=== PATIENT | female | born 2000 | race Caucasian/White ===

== ENCOUNTER 2019-01-08 05:01 | Observation (INO) ==
--- NOTE | 2018-12-31 17:16 | PAT Medication Instructions ---
Medication Instructions Date of Service January 01, 2019 Home Medications albuterol sulfate 90 mcg/actuation breath activated powder inhaler 1 puffs INH Q4H NEEDED testosterone enanthate 50 mg SUBCUT WK ASK your surgeon for instructions testosterone enanthate 50 mg SUBCUT WK Take morning of surgery With a small sip of water, OTHERWISE NOTHING TO EAT OR DRINK AFTER MIDNIGHT: albuterol sulfate 90 mcg/actuation breath activated powder inhaler 1 puffs INH Q4H NEEDED (if needed; bring to hospital) Take evening before surgery albuterol sulfate 90 mcg/actuation breath activated powder inhaler 1 puffs INH Q4H NEEDED (if needed) Other Notes If you have any questions please call us at [phone] or [phone] or [phone] or [phone]
--- NOTE | 2019-01-01 11:03 | Anesthesiology Consultation ---
Date of Service January 01, 2019 Assessment & Plan (1) Encounter for pre-operative examination: - No previous anesthesia records available Chart Review Chart Review: Acceptable Risk for Surgery and Patient seen in Pre Admission Manju ting Consults Requested none Teaching & Discussion Pre-Anesthesia Teaching/Discussion Notes: Instructed NPO after midnight before surgery, except medications with 15 cc of water. Medication instructions provided according to the PAT guidelines. History Surgery Operation Date: 01/08/19 07:30 Proposed Procedures p Non-Cancerous Bilateral Mastectomy with Free Nipple Grafting - Shannon Echols MD Height/Weight Height: 5 ft 7 in Weight: 75.4 kg Allergies Allergy/AdvReac Type Severity Reaction Status Date / Time lamotrigine [From Lamictal] Allergy Unknown HANDS SWELL Verified 12/25/18 10:41 Medications Home Medications Medication Instructions Recorded Confirmed Last Taken albuterol sulfate 90 mcg/actuation 1 puffs INH Q4H PRN 12/19/18 12/25/18 Unknown breath activated powder inhaler testosterone enanthate 50 mg SUBCUT WK 12/25/18 12/25/18 Unknown Past Medical History Medical History Asthma Exercise / Class Metabolic Activity II 4-5 Yardwork/Stairs/Walk up hill (Able to climb FOS. Denies CP or SOB. ) Past Surgical History Surgical History Hx of wisdom tooth extraction Past Anesthesia History No Hx of Anesthesia Complications and No Family Hx of Anesthesia Complications History of PONV No Hx of PONV and No Hx of Motion Sickness Social History Smoking Status: Never smoker Do You Dip or Chew Tobacco: No Hx Alcohol Use: No Hx Substance Use: No Review of Systems Patient denies chest pain, shortness of breath, dyspnea on exertion, joint pain, reflux, cough, wheezing, palpitations. Physical Exam Vital Signs BP: 107/61 P: 60 R: 18 T: 98.3 SPO2: 98% on RA ENMT Thyromental Distance: > or= 3.5 Finger Breadths (4) Mallampati Class: I Neck normal visual inspection; neck extension not limited Respiratory normal respiratory effort Auscultation: lungs clear to auscultation bilaterally Cardiovascular Rate/Rhythm: regular rate and regular rhythm Heart Sounds: no murmur Neurologic moves all extremities Psychiatric Orientation: alert and oriented x 3 Testing Laboratory Results 01/01/19 07:37 01/01/19 07:37 PT 10.7 Seconds (9.0-12.0) 01/01/19 07:37 INR 1.0 (0.9-1.1) 01/01/19 07:37 APTT 27.1 Seconds (21.0-31.0) 01/01/19 07:37
[2019-01-01 14:19] LABS: Est GFR (African American) 92.3; Est GFR (Non-African American) 79.7; Potassium 3.6 mmol/L (3.5-5.1)
[2019-01-01 14:27] LABS: Basophils # (auto) 0.03 K/uL (0-0.2); Basophils % (auto) 0.4 %; Eosinophils # (auto) 0.06 K/uL (0-0.5); Eosinophils % (auto) 0.9 %; Hematocrit (blood only) 43.9 % (37-47); Hemoglobin 14.2 g/dL (12.0-16.0); Immature Granulocytes # (auto) 0.01 K/uL (0.00-0.02); Immature Granulocytes % (auto) 0.1 %; Lymphocytes # (auto) 2.01 K/uL (1.2-3.4); Lymphocytes % (auto) 29.5 %; Mean Corpuscular Hemoglobin 29.8 pg (25-34); Mean Corpuscular Hgb Conc 32.3 g/dL (32-36); Mean Corpuscular Volume 92.2 fL (80-100); Mean Platelet Volume 11.6 fL (7.4-10.4); Monocytes # (auto) 0.78 K/uL (0.11-0.59); Monocytes % (auto) 11.4 %; Neutrophils # (auto) 3.93 K/uL (1.4-6.5); Neutrophils % (auto) 57.7 %; Platelet Count 211 K/uL (130-400); RDW Coefficient of Variation 13.2 % (11.5-14.5); RDW Standard Deviation 44.5 fL (36.4-46.3); Red Blood Count 4.76 M/uL (4.2-5.4); White Blood Count 6.82 K/uL (4.8-10.8)
[2019-01-01 14:36] LABS: Partial Thromboplastin Time 27.1 Seconds (21.0-31.0); Prothrombin Time 10.7 Seconds (9.0-12.0)
[2019-01-08] MEDS ORDERED: LR 15ML/HR IV SCH (06:00)
[2019-01-08] MEDS ORDERED: CEFAZOLIN 2000MG 2,000 MG/15 ML SYR IV SCH (06:00)
[2019-01-08] MEDS ORDERED: EPINEPHrine INJ 1 MG/ML AMP ONE (07:01)
[2019-01-08] MEDS ORDERED: MIDAZOLAM HCL 1 MG/ML 2ML VIAL ONE (07:02)
[2019-01-08] MEDS ORDERED: LIDOCAINE HCL 1% 20 ML VIAL ONE (07:02)
[2019-01-08] MEDS ORDERED: LIDOCAINE/EPINEPHRINE 1% 20 ML VIAL ONE (07:02)
[2019-01-08] MEDS ORDERED: BUPIVACAINE 0.25% 30 ML VIAL ONE (07:02)
[2019-01-08] MEDS ORDERED: fentaNYL citrate 100 MCG/2 ML VIAL ONE ×2 (07:02→07:46)
--- NOTE | 2019-01-08 07:03 | History & Physical Bridge Note ---
Date of Service January 08, 2019 History & Physical Bridge Note I have examined the patient, reviewed the History & Physical and in the interval since the performance of the History & Physical I have noted the following changes of clinical significance: no changes noted
[2019-01-08] MEDS ORDERED: CISATRACURIUM BESYLATE IV SOLN 2 MG/ML 10 ML VIAL IV ONE (07:05)
[2019-01-08] MEDS ORDERED: ACETAMINOPHEN 1000 MG/100 ML IV IV ONE (07:51)
[2019-01-08] MEDS ORDERED: HYDROmorphone INJ 1 MG/ML SYRINGE IV PRN (07:57)
[2019-01-08] MEDS ORDERED: ATROPINE SULFATE 0.1 MG/ML 10ML SYR IV PRN (07:57)
[2019-01-08] MEDS ORDERED: FLUMAZENIL 0.1 MG/1 ML 10 ML VIAL IV PRN (07:57)
[2019-01-08] MEDS ORDERED: LABETALOL HCL IV 5 MG/ML 20ML IV PRN (07:57)
[2019-01-08] MEDS ORDERED: ONDANSETRON INJ 2 MG/ML 2 ML VIAL IV PRN ×2 (07:57→11:19)
[2019-01-08] MEDS ORDERED: NALOXONE HCL 0.4 MG/1 ML VIAL/CARP IV PRN (07:57)
[2019-01-08] MEDS ORDERED: PROMETHAZINE HCL 12.5 MG in SODIUM CHLORIDE 0.9% 50 ML IV PRN ×2 (07:57→11:11)
[2019-01-08] MEDS ORDERED: ePHEDrine sulfate 50 MG/ML AMP IV PRN (07:57)
[2019-01-08] MEDS ORDERED: ONDANSETRON INJ 2 MG/ML 2 ML VIAL ONE (08:22)
[2019-01-08] MEDS ORDERED: NEOSTIGMINE METHYLSULFATE 5 MG/5 ML SYR ONE (08:22)
[2019-01-08] MEDS ORDERED: LIDOCAINE HCL 2% 2 ML VIAL/AMP(20MG/ML) INFIL ONE (08:22)
[2019-01-08] MEDS ORDERED: DEXAMETHASONE SOD INJ 4 MG/ML VIAL ONE (08:22)
[2019-01-08] MEDS ORDERED: LARYING-O-JET KIT (LTA) ONE (08:22)
[2019-01-08] MEDS ORDERED: PROPOFOL IV EMULSION 10 MG/ML 20 ML VIAL IV ONE (08:22)
[2019-01-08] MEDS ORDERED: GLYCOPYRROLATE 0.2 MG/ML VIAL ONE (08:22)
--- NOTE | 2019-01-08 10:59 | Post Operative Brief Note ---
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
[2019-01-08] MEDS ORDERED: OXYCODONE/ACETAMINOPHEN 5mg/325mg TAB PO PRN (11:11)
[2019-01-08] MEDS ORDERED: MoRPHine SULFATE 2 MG/ML CARP IV PRN (11:11)
[2019-01-08] MEDS ORDERED: ACETAMINOPHEN 325 MG TAB PO PRN (11:11)
[2019-01-08] MEDS ORDERED: MoRPHine SULFATE 10 MG/ML CARP/VIAL IV PRN (11:11)
[2019-01-08] MEDS ORDERED: OXAZEPAM 10 MG CAPSULE PO PRN (11:11)
[2019-01-08] MEDS ORDERED: DiphenhydrAMINE HCL 50 MG/ML VIAL IV PRN (11:11)
[2019-01-08] MEDS ORDERED: MoRPHine SULFATE 4 MG/ML 1 ML CARP\\VIAL IV PRN (11:11)
--- NOTE | 2019-01-08 11:51 | Operative Report ---
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 He was identified and marked in the preoperative holding area. I marked the incisions along the inframammary folds and made the superior incision in an elliptical fashion in order to provide a horizontal scar pattern if possible. I also marked the position where anticipated placing the nipple areolar complex and had the patient confirmed the site. Site marking was adjusted due to patient preference. He is brought to the operating room where he was placed under general anesthesia in supine position without incident. Surgical site was prepped and draped sterilely. A timeout procedure was performed. 1% lidocaine with epinephrine was used to anesthetize the planned incisions. The left nipple was excised using an amputative technique, and then a full-thickness skin graft was harvested from the surrounding areola. It was harvested using a 15 blade scalpel and was defatted using a curved iris scissor. It was placed on the back table in a saline soaked sponge until I was ready to place the graft. I began by making the inferior incision using 15 blade scalpel. Incision was deepened through dermis using peak plasma blade, and deepened down to the chest wall. Similar incision was made superiorly. Incision was again deepened using the peak plasma blade. Superiorly, the incision was deepened until the breast capsule was able to be identified and a mastectomy flap of uniform thickness, approximately 2 cm in thickness was raised in this plane superiorly toward the clavicle. As this was a noncancerous mastectomy, I did not extend the dissection all the way up to the clavicle in o rder to prevent contour irregularity. Once I reached the pectoralis major both inferiorly and superiorly with dissection, I then began to dissect the breast off of the pectoralis fascia leaving a small amount of underlying fat. Throughout dissection, hemostasis was achieved using the peak plasma blade. The breast was removed and passed off as specimen. Following removal of the specimen, I performed some additional undermining superiorly and inferiorly along the inframammary fold to facilitate closure and disrupt the inframammary fold. Prior to closure, quarter percent Marcaine plain was used to anesthetize the flaps as well as pectoralis fascia, and a 15 [place] Cresencio drain was placed in the wound bed and brought out through a separate stab incision laterally. Deep dermis was closed using 2-0 Vicryl interrupted sutures, superficial dermis closed using 3-0 PDO running Quill suture, and subcuticular wound closure was performed using 3-0 Monocryl. Following closure, the areolar was inset. I made an incision at the patient's desired location, at the lateral border of pectoralis and just superior to the incision. This was de-epithelialized. The graft was inset using 5-0 chromic suture, and then centrally, circular incision was made using a 15 blade scalpel such that the nipple graft could then be placed. It was inset using 5-0 chromic suture as well. 6 4-0 silk tie over bolster sutures were placed, and a Xeroform and cotton bolster was placed. An identical procedure was performed on the right side. There was excellent symmetry at the close of the case. Dermabond Prineo was applied to the incisions. Dry dressing followed by a binder were placed. Grazyna De La Cruz PA-C was present and scrubbed throughout the entire procedure and was instrumental in assisting in retraction, assisting in simultaneous wound closure, and preparing the nipple areolar complex grafts. I attest to the content of the Intraoperative Record and any orders documented therein. Any exceptions are noted below.
--- NOTE | 2019-01-08 11:53 | Anesthesiology Progress Note ---
Date of Service January 08, 2019 Anesthesia Post Procedure Vital Signs Vital Signs: Temp Pulse Pulse Resp BP BP Pulse Ox 01/08/19 11:40 60 16 127/75 100 01/08/19 11:30 55 L 17 129/82 100 01/08/19 11:20 58 L 15 110/80 100 01/08/19 11:12 36.4 C L 61 14 115/77 100 01/08/19 06:06 37 C 54 L 18 118/70 99 Transfer of Care Handoff Completed per policy Notes Mental Status: alert / awake / arousable Patient Amnestic to Procedure: Yes Nausea / Vomiting: adequately controlled Pain: adequately controlled Airway Patency, RR, SpO2: stable & adequate BP & HR: stable & adequate Hydration State: stable & adequate Anesthetic Complications: no major complications apparent
[2019-01-08] MEDS ORDERED: ALBUTEROL HFA 8 GM INHALER INH PRN (12:17)
[2019-01-08] MEDS ORDERED: D5W AND 1/2NSS + 20MEQ KCL 20 MEQ/1,000 ML BAG IV SCH (12:30)
[2019-01-08] MEDS: CEFAZOLIN 2000MG 2,000 MG/15 ML SYR IV SCH ×2 (16:42→23:46)
[2019-01-08] MEDS: OXYCODONE/ACETAMINOPHEN 5mg/325mg TAB PO PRN ×2 (16:51→22:57)
--- NOTE | 2019-01-09 07:59 | Anesthesiology Progress Note ---
Date of Service January 09, 2019 Anesthesia Post Procedure Vital Signs Vital Signs: Temp Pulse Pulse Resp BP Pulse Ox 01/09/19 03:57 36.5 C 65 16 106/70 98 01/09/19 00:56 36.7 C 61 19 106/65 98 01/08/19 15:06 36.6 C 84 17 111/69 99 01/08/19 14:10 36.7 C 67 18 109/68 99 01/08/19 13:10 36.7 C 65 16 119/72 100 01/08/19 12:43 36.8 C 57 L 20 128/77 98 01/08/19 12:10 37.2 C 60 16 129/79 100 01/08/19 11:50 36.5 C 65 17 127/73 100 01/08/19 11:40 60 16 127/75 100 01/08/19 11:30 55 L 17 129/82 100 01/08/19 11:20 58 L 15 110/80 100 01/08/19 11:12 36.4 C L 61 14 115/77 100 Pain Intensity Bilateral Chest: Pain Intensity: 4 Notes Mental Status: alert / awake / arousable and participated in evaluation Patient Amnestic to Procedure: Yes Nausea / Vomiting: adequately controlled Pain: adequately controlled Airway Patency, RR, SpO2: stable & adequate BP & HR: stable & adequate Hydration State: stable & adequate Anesthetic Complications: no major complications apparent and Pt Satisfied with anesthetic care
[2019-01-09] MEDS: OXYCODONE/ACETAMINOPHEN 5mg/325mg TAB PO PRN (08:01)
[2019-01-09] MEDS ORDERED: MULTIVITAMIN TAB PO SCH (09:00)
--- NOTE | 2019-01-09 11:25 | Surgery Progress Note ---
Date of Service January 09, 2019 Assessment & Plan (1) Gender dysphoria: POD #1 Non-Cancerous Bilateral Mastectomy with Free Nipple Grafting(Bilateral) Patient doing well this AM. Pain well controlled. Tolerating PO intake well. Patient is ok for discharge today. He is aware that drains will remain in place at discharge. Patient is aware that he will need to record drainage amounts daily. Patient reminded to keep surgical dressings in place and to keep them dry. He is to keep physical activity light. He will be staying with his aunt following surgery. Patient has 2 day post-op visit tomorrow. Prescription for pain medication and antibiotic provided at Pre-Op visit. Patient aware that he is to use as prescribed. All questions answered. (2) [id number] transgender person: Subjective Patient doing well this AM. He denies any pain. Tolerating PO intake without issue. Drains x2 in place. No new concerns or complaints. Physical Exam Physical Exam: Physical exam- binder in place. Surgical dressings are clean, dry, intact. Results & Data Vital Signs (Past 12 Hours) Vital Signs Temp Pulse Pulse Pulse Pulse Resp BP 01/09/19 10:37 36.9 C 75 18 122/60 01/09/19 08:00 36.6 C 74 18 112/66 01/09/19 03:57 36.5 C 65 16 106/70 01/09/19 00:56 36.7 C 61 19 106/65 Pulse Ox 01/09/19 10:37 93 01/09/19 08:00 97 01/09/19 03:57 98 01/09/19 00:56 98
[2019-01-09 12:17] VITALS: BP 107/62; PULSE 69; TEMP 98.2; O2SAT 98
--- NOTE | 2019-01-10 16:01 | Discharge Summary ---
Date of Service January 10, 2019 Admission HPI Per Admitting Provider Timi Fisher) is a 18- wsteug-bz-[id number] transgender patient who presented to [facility] with history of gender dysphoria. Patient was taken to the OR and underwent Non-Cancerous Bilateral Mastectomy with Free Nipple Grafting(Bilateral). There were no intraoperative complications. Patient was then taken to recovery and transferred to [facility]/surg floor for observation. On POD #1 patient was feeling well. Vinay was tolerating a regular diet, voiding on own, and ambulating well without assistance. On exam, vitals were stable. Binder, surgical dressings with nipple bolsters in place. They were clean and dry. Drains x2 in place. Principal Diagnosis [id number] transgender person Gender dysphoria Discharge Data Allergies Allergy/AdvReac Type Severity Reaction Status Date / Time lamotrigine [From Lamictal] Allergy Unknown HANDS SWELL Verified 01/08/ 06:03 Procedures Performed Operation Date: 01/08/ 07:30 Actual Procedures p Non-Cancerous Bilateral Mastectomy with Free Nipple Grafting(Bilateral) - Shannon Echols MD Hospital Course (1) Gender dysphoria: Timi Fisher) is a 18- omiujj-iq-zeqs transgender patient who presented to [facility] with history of gender dysphoria. Patient was taken to the OR and underwent Non-Cancerous Bilateral Mastectomy with Free Nipple Grafting(Bilateral). There were no intraoperative complications. Patient was then taken to recovery and transferred to med/surg floor for observation. On POD #1 patient was feeling well. Vinay was tolerating a regular diet, voiding on own, and ambulating well without assistance. On exam, vitals were stable. Binder, surgical dressings with nipple bolsters in place. They were clean and dry. Drains x2 in place. Patient is ok for discharge today. He is aware that drains will remain in place at discharge. Patient is aware that he will need to record drainage amounts daily. Patient reminded to keep surgical dressings in place and to keep them dry. He is to keep physical activity light. He will be staying with his aunt following surgery. Patient has 2 day post-op visit tomorrow. Prescription for pain medication and antibiotic provided at Pre-Op visit. Patient aware that he is to use as prescribed. All questions answered. 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 Discharge Goals: Decrease discomfort and Improve function Activity: As commented below Non-emergency contact: Surgeon Call non-emergency contact if: you have any medication questions, your pain is not controlled, your temperature is above 101.5, your wound has increased redness and your wound has increased drainage Follow-up/Referrals: Billie Mata MD [Primary Care Provider] - Diet: Regular Addtl Provider Instructions: ACTIVITY RECOMMENDATIONS: __Normal activities _X_No bending, lifting or straining __No driving _X_Driving allowed when you are off pain medications _X_Walking permitted __You should have help at home for ___ days DRESSINGS: __No dressings required _X_Keep dressings dry/in place until first office visit __Remove dressings ___ and leave dressings off __Apply ice ___ days __Remove dressings and reapply garment __Apply antibiotic ointment (Bacitracin, Neosporin, etc) to wounds 3-4 times/day for 10 days BATHING: _X_Keep dressings dry _X_Sponge bathing permitted __Showering permitted __No swimming, hot tubs or soaking in a tub MEDICATIONS: Resume previous medications unless instructed otherwise by your surgeon. _X_Do not use aspirin, Motrin, Advil or Ibuprofen as these may promote bleeding. Please use Tylenol. _X_Prescription(s) provided: Prescription for pain medication and antibiotic provided at office visit. Please take as prescribed. OTHER INSTRUCTIONS: X__Record drain output 2-3 times per day SPECIAL CARE INSTRUCTIONS: * It is normal to have a mild fever after surgery. If your temperature is higher than 101.5 degrees F, please call the office at [phone]. * Constipation is a typical side effect of pain medication. An imyg-bem-agersoe stool softener will help relieve this. * Leaking around surgical drains may occur and should not cause concern. Sometimes these drains become clogged. If this happens, remove the bulb and milk the clot out of the tube, then replace the bulb. * Drainage from wounds after liposuction is normal and should be expected. Garments will become soiled. You should protect furniture and bedding. This drainage should mostly subside within 2-3 days. Leave garments in place unless instructed to remove them. * If you have unusual drainage from a wound or are concerned you have an infection or have any questions or concerns, please call the office at [phone]. FOLLOW UP VISIT: If not already scheduled, please call the office, , when you return home after surgery to schedule an appointment to be seen in _1__ day. Prescriptions: Continued albuterol sulfate 90 mcg/actuation aerosol powdr breath activated 1 puffs INH Q4H PRN (Reason: Wheezing) RF: 0 testosterone enanthate 50 mg/0.5 mL Auto-Injector 50 mg SUBCUT WK RF: 0 Stand-Alone Forms: [facility]/Other Patient Handouts: Tube Huang Cabello Drainage Care Discharge Orders: Discharge Order (Routine); Ordered 01/09/19 Ordered By: Grazyna De La Cruz Admission Data Admit Date/Time: 01/08/19 11:11 Attending Provider: Shannon Echols Admit Provider: Shannon Echols Primary Care Provider: Billie Mata Service: Surgical Services Other Interventions: Discharge Summary Assessment (RN) Last Done: 01/09/19 10:37 DC Date/Time DO NOT enter until pt leaves facility: 01/09/19 15:04
== END 2019-01-09 15:04 | disposition home or self-care (01) ==
LOC: ASU 05:01 → 3W 05:01